=== PATIENT | male | born 1965 | race American Indian/Alaskan Native ===

== ENCOUNTER 2021-09-08 14:26 | Outpatient (CLI) | payer OTHER ==
--- NOTE | 2021-09-08 16:33 | XRay Report ---
RIGHT HIP 2 VIEW(S) INDICATION / CLINICAL INFORMATION: RIGHT HIP PAIN COMPARISON: None available. FINDINGS: BONES / JOINT(S): No acute fracture or subluxation. Post surgical changes from right femur intramedul solo wendy and screw fixation. Heterotopic ossification noted about the right hip joint. No significant degenerative change. SOFT TISSUES: No significant abnormality. ADDITIONAL FINDINGS: None. Signer Name: Ryan Uribe MD Signed: 09/08/2021 4:28 PM Workstation Name: [id number]
--- NOTE | 2021-09-08 16:36 | XRay Report ---
RIGHT FEMUR 4 VIEW(S) INDICATION / CLINICAL INFORMATION: RIGHT FEMUR PAIN COMPARISON: None available. FINDINGS: BONES / JOINT(S): No acute fracture or subluxation. Post surgical changes from its medullary wendy and screw fixation of the right femur are demonstrated. There is heterotopic ossification about the right hip joint. Additionally, remote, healed fracture of the distal femoral shaft with posttraumatic appe arance. No evidence of hardware failure. The proximal screw of the distal femur is approximately 0.7 cm proud to the distal femoral cortex. Moderate degenerative changes of the right knee joint. SOFT TISSUES: 4 mm rounded metallic density within the posterior medial soft tissues of the right thi gh of indeterminate clinical significance. Could represent retained foreign body. ADDITIONAL FINDINGS: None. Signer Name: Ryan Uribe MD Signed: 09/08/2021 4:31 PM Workstation Name: [id number]
== END 2021-09-08 14:27 | disposition home or self-care (01) ==
LOC: XRAY 14:26
PROVIDERS: ATTEND Internal Medicine
DX: M17.11 Unilateral primary osteoarthritis, right knee (principal); M61.561 Other ossification of muscle, right lower leg